=== PATIENT | female | born 1990 | race Caucasian/White ===

== ENCOUNTER 2017-10-02 00:16 | Emergency (ER) | payer OTHER ==
[2017-10-02 00:26] VITALS: BP 121/75
[2017-10-02 00:46] LABS: BILIRUBIN,URINE NEGATIVE (NEGATIVE); GLUCOSE, URINE (UA) NEGATIVE (NEGATIVE); KETONES,URINE (UA) NEGATIVE (NEGATIVE); LEUKOCYTE ESTERASE, URINE SMALL (NEGATIVE); NITRITE,URINE NEGATIVE (NEGATIVE); OCCULT BLOOD,URINE LARGE (NEGATIVE); PROTEIN,URINE TRACE mg/dL (NEGATIVE); UROBILINOGEN,URINE 0.2 (NORMAL) E.U./dL (NORMAL)
[2017-10-02 00:53] LABS: BACTERIA,URINE None Seen /HPF (None Seen); CLARITY,URINE CLOUDY (CLEAR); HCG UR QUAL NEGATIVE; RBC,URINE TNTC /HPF (0-5); SQUAMOUS EPITHELIAL CELL,UR NONE SEEN (<= Few)
[2017-10-02] MEDS ORDERED: SULFAMETH/TRIMETH DS 800/160 MG TABLET PO STA (00:54)
[2017-10-02] MEDS ORDERED: PHENAZOPYRIDINE 100 MG TABLET PO STA (00:54)
--- NOTE | 2017-10-02 00:59 | ED Physician Documentation ---
PD HPI FEMALE - Stated complaint Stated Complaint: FEMALE - Chief complaint Chief Complaint: Abd Pain - History obtained from History obtained from: Patient - History of Present Illness Timing - onset: Yesterday Timing - details: Gradual onset, Still present Associated symptoms: Pelvic pain, Urinary frequency Recently seen: Not recently seen - Additional information Additional information: patient is a 27 year old female with no significant past medical history who is presenting to the emergency department dysuria, and increased urinary frequency for the past two days. Review of Systems Ten Systems: 10 systems reviewed and negative GI: denies: Nausea, Vomiting : reports: Dysuria, Frequency. denies: Discharge PD PAST MEDICAL HISTORY - Past Medical History Past Medical History: No - Past Surgical History Past Surgical History: Yes General: Appendectomy - Present Medications Home Medications: Ambulatory Orders Medication Instructions Recorded Confirmed Phenazopyridine HCl [Pyridium] 200 mg PO TID PRN #6 tablet 10/02/17 Sulfamethox/Trimeth 800/160 1 each PO BID #10 tablet 10/02/17 [Bactrim Ds 800/160] - Allergies Allergies/Adverse Reactions: Allergies Allergy/AdvReac Type Severity Reaction Status Date / Time amoxicillin Allergy Itching Verified 10/02/17 00:28 cefaclor [From Ceclor] Allergy Itching Verified 10/02/17 00:27 - Social History Does the pt smoke?: No Smoking Status: Never smoker PD ED PE NORMAL - Vitals Vital signs reviewed: Yes - General General: Alert and oriented X 3, No acute distress - HEENT HEENT: Atraumatic, Moist mucous membranes - Cardiac Cardiac: RRR - Respiratory Respiratory: No respiratory distress - Abdomen Abdomen: Soft, Non distended - Derm Derm: Normal color, Warm and dry - Extremities Extremities: No deformity - Neuro Neuro: Alert and oriented X 3 Eye Opening: Spontaneous Results - Vitals Vitals: Vital Signs - 24 hr 10/02/17 00:24 Temperature 36.2 C L Heart Rate 74 Respiratory 20 Rate Blood Pressure 121/75 O2 Saturation 97 Oxygen O2 Source Room air - Labs Labs: Laboratory Tests 10/02/17 00:35 Urine Color YELLOW Urine Clarity CLOUDY Urine pH 6.0 Ur Specific [place] >=1.030 H Urine Protein TRACE Urine Glucose (UA) NEGATIVE Urine Ketones NEGATIVE Urine Occult Blood LARGE H Urine Nitrite NEGATIVE Urine Bilirubin NEGATIVE Urine Urobilinogen 0.2 (NORMAL) Ur Leukocyte Esterase SMALL H Urine RBC TNTC H Urine WBC 4-5 Ur Squamous Epith Cells NONE SEEN Urine Bacteria None Seen Ur Microscopic Review INDICATED Urine Culture Comments INDICATED Urine HCG, Qual NEGATIVE PD MEDICAL DECISION MAKING - ED course Complexity details: reviewed old records, reviewed results, re-evaluated patient , considered differential, d/w patient ED course: Patient was seen and examined at bedside. Patient's urine was collected and sent. Findings were consistent with a urinary tract infection. patient was started on bactrim and pyridium. patient required no further work up at this time and was stable for discharge with outpatient follow up. - Sepsis Event Vital Signs: Vital Signs - 24 hr 10/02/17 00:24 Temperature 36.2 C L Heart Rate 74 Respiratory 20 Rate Blood Pressure 121/75 O2 Saturation 97 Oxygen O2 Source Room air Departure - Departure Disposition: 01 Home, Self Care Clinical Impression: Urinary tract infection Condition: Good Instructions: ED UTI Cystitis Female Follow-Up: SHANNON FINK [Primary Care Provider] - Within 3 Days Prescriptions: Phenazopyridine HCl [Pyridium] 200 mg PO TID PRN #6 tablet PRN Reason: dysuria Sulfamethox/Trimeth 800/160 [Bactrim Ds 800/160] 1 each PO BID #10 tablet Comments: Your symptoms today are being caused by a urinary tract infection. you are being started on antibiotics and will be on them for the next five days. you are also being started on pyridium which will help with the pain with urination. you should stay well hydrated. you can take motrin or tylenol as needed for pain. you should follow up with your doctor if your symptoms don't improve. you may return to the emergency department at any time for new, worsening or uncontrollable symptoms. Discharge Date/Time: 10/02/17 01:05
== END 2017-10-02 01:05 | disposition home or self-care (01) ==
LOC: ED 00:16
DX: N39.0 Urinary tract infection, site not specified (principal)
CPT/HCPCS: 81001; 81003; 81025; 87086; 99283

== ENCOUNTER 2017-10-02 19:57 | Emergency (ER) | payer OTHER ==
[2017-10-02 20:13] VITALS: BP 122/65
[2017-10-02] MEDS ORDERED: NITROFURANTOIN MACRO 100 MG CAPSULE PO STA (20:29)
--- NOTE | 2017-10-02 20:32 | ED Physician Documentation ---
PD HPI SKIN - Stated complaint Stated Complaint: HIVES - Chief complaint Chief Complaint: Allergic Rx - History obtained from History obtained from: Patient - History of Present Illness Timing - onset: Today Timing - details: Gradual onset, Still present Location: Abdomen Quality / character: Itchy Improved by: Benadryl Contributing factors: Exposed to medication Similar symptoms before: No diagnosis Recently seen: Emergency Dept - Additional information Additional information: Patient is a 27 year old female presenting to the emergency department for an allergic reaction. Patient was seen last night and started on bactrim and pyridium for a uti. Patient states that this morning she had a rash on her abdomen. patient took a half a benadryl. patient did not take another dose of her medication. Review of Systems Ten Systems: 10 systems reviewed and negative Respiratory: denies: Wheezing GI: denies: Nausea, Vomiting PD PAST MEDICAL HISTORY - Past Medical History Past Medical History: No - Past Surgical History Past Surgical History: Yes General: Appendectomy - Present Medications Home Medications: Ambulatory Orders Medication Instructions Recorded Confirmed Nitrofurantoin Monohyd/M-Cryst 100 mg PO BID 5 Days capsule 10/02/17 [Macrobid 100 mg Capsule] Phenazopyridine HCl [Pyridium] 200 mg PO TID PRN #6 tablet 10/02/17 Sulfamethox/Trimeth 800/160 1 each PO BID #10 tablet 10/02/17 [Bactrim Ds 800/160] - Allergies Allergies/Adverse Reactions: Allergies Allergy/AdvReac Type Severity Reaction Status Date / Time amoxicillin Allergy Itching Verified 10/02/17 00:28 [facility] Allergy Itching Verified 10/02/17 00:27 - Social History Does the pt smoke?: No Smoking Status: Never smoker Does the pt drink ETOH?: No Does the pt have substance abuse?: No - Immunizations Immunizations are current?: No Immunizations: TDAP >10years/unknown, Other immun current PD ED PE NORMAL - Vitals Vital signs reviewed: Yes - General General: Alert and oriented X 3, No acute distress - HEENT HEENT: Atraumatic - Cardiac Cardiac: RRR - Respiratory Respiratory: No respiratory distress, Clear bilaterally - Neuro Neuro: Alert and oriented X 3 PD ED PE EXPANDED - Derm SKin visual: 1 - rash (uticaria) Results - Vitals Vitals: Vital Signs - 24 hr 10/02/17 20:11 Temperature 36.6 C Heart Rate 83 Respiratory 16 Rate Blood Pressure 122/65 O2 Saturation 98 Oxygen O2 Source Room air PD MEDICAL DECISION MAKING - ED course Complexity details: reviewed old records, reviewed results, re-evaluated patient , considered differential, d/w patient ED course: Patient was seen and examined at bedside. Patient was well appearing with a rash on her abdomen. Patient had no airway involvement. Patient was switched to macrobid. patient required no further inpatient work up at this time and was stable for discharge with outpatient followup. - Sepsis Event Vital Signs: Vital Signs - 24 hr 10/02/17 20:11 Temperature 36.6 C Heart Rate 83 Respiratory 16 Rate Blood Pressure 122/65 O2 Saturation 98 Oxygen O2 Source Room air Departure - Departure Disposition: 01 Home, Self Care Clinical Impression: Allergic urticaria Condition: Good Instructions: ED Allergic Reaction General Other Follow-Up: SHANNON FINK [Primary Care Provider] - Within 3 Days Prescriptions: Nitrofurantoin Monohyd/M-Cryst [Macrobid 100 mg Capsule] 100 mg PO BID 5 Days capsule Comments: It is difficult to say which medication you were allergic to. You are going to be switched to a different antibiotic. You can take 25-50mg of benadryl as needed for allergy symptoms. You can also try cold showers to help with the symptoms. you should follow up with your doctor if symptoms persist. you should return to the emergency department for shortness of breath, facial swelling or worsening symptoms.
== END 2017-10-02 20:41 | disposition home or self-care (01) ==
LOC: ED 19:57
DX: L50.0 Allergic urticaria (principal); T37.0X5A Adverse effect of sulfonamides, initial encounter; N39.0 Urinary tract infection, site not specified; R30.0 Dysuria; R10.2 Pelvic and perineal pain; R35.0 Frequency of micturition
CPT/HCPCS: 81001; 81025; 87086; 99283; A9270; 81003

== ENCOUNTER 2021-03-10 17:47 | Outpatient (CLI) | payer OTHER ==
--- NOTE | 2021-03-11 09:16 | XRAY Report ---
PROCEDURE: Foot 3 View LT INDICATIONS: L FOOT PX TECHNIQUE: 3 views of the foot were acquired. COMPARISON: None. FINDINGS: BONES: No acute, displaced fracture or dislocation. Bipartite lateral hallux sesamoids. SOFT TISSUES: No focal abnormality. IMPRESSION: 1.No acute osseous abnormality. Reviewed by: Malik Dee MD on 03/11/2021 9:15 AM [facility] Approved by: Malik Dee MD on 03/11/2021 9:15 AM [facility] Station ID: [id number]
== END 2021-03-10 23:59 ==
LOC: DI.N 17:47
PROVIDERS: ATTEND Family Medicine
DX: M79.672 Pain in left foot (principal)